=== PATIENT | male | born 1985 | race African-American/Black ===

== ENCOUNTER 2022-03-09 11:18 | Emergency (ER) | payer OTHER ==
[2022-03-09 12:19] LABS: ALT (SGPT) 27 U/L (8-55); AST (SGOT) 22 U/L (5-34); Albumin 4.5 g/dL (3.5-5.0); Alkaline Phosphatase 65 U/L (40-110); Anion Gap 14 mmol/L (10-20); BUN (Urea Nitrogen) 14 mg/dL (8.9-20.6); Bilirubin, Total 0.4 mg/dL (0.2-1.2); Calc. Creatinine Clearance 0 mL/min (70-130); Calcium 9.5 mg/dL (7.8-10.44); Carbon Dioxide 24 mmol/L (22-29); Chloride 105 mmol/L (98-107); Globulin 3.6 g/dL (2.4-3.5); Glucose 94 mg/dL (70-105); Potassium 3.8 mmol/L (3.5-5.1); Protein, Total 8.1 g/dL (6.0-8.3); Sodium 139 mmol/L (136-145)
[2022-03-09] MEDS ORDERED: hydrALAZINE 20 MG/ML VIAL ONE (12:19)
[2022-03-09 12:27] LABS: #Basophils 0.1 10x3/uL (0.0-0.2); #Eosinphils 0.2 10x3/uL (0.0-0.5); #Monocytes 0.7 10x3/uL (0.0-1.1); #Neutrophils 3.7 10x3/uL (1.5-8.4); %Basophils 0.7 % (0.0-2.0); %Eosinophils 2.5 % (0.0-6.0); %Lymphocytes 48.9 % (18.0-47.0); %Monocytes 7.6 % (0.0-10.0); %Neutrophils 40.1 % (40.0-75.0); Hemoglobin 13.4 g/dL (13.5-17.5); Mean Corpuscular Volume 65.7 fl (81.2-95.1); Mean Platelet Volume 10.6 fl (7.4-10.4); Platelet Count 341 10x3/uL (150-450); RBC Distribution Width 18.5 % (11.5-14.5); Red Blood Cell (RBC) Count 6.38 10x6/uL (4.32-5.72); White Blood Cell (WBC) Count 9.2 10x3/uL (3.5-10.5)
[2022-03-09 12:30] LABS: Bilirubin Neg (Negative); Blood, Urine Negative (Negative); Clarity Clear (Clear); Glucose, Urine (Dipstick) Normal (Negative); Ketone, Urine Negative (Negative); Leukocyte Negative (Negative); Nitrite Negative (Negative); Protein, Urine (Dipstick) Negative (Neg-Trace); Specific Gravity, Urine 1.005 (1.002-1.036); Urobilinogen Normal mg/dL (Less than 2)
[2022-03-09 14:57] LABS: Target Cells SLIGHT = 2-5 cells (100X) (0-1/hpf)
[2022-03-09 14:58] LABS: Hypochromia SLIGHT = 6-15 cells (100X) (0-5/hpf); Ovalocytes SLIGHT = 2-5 cells (100X) (0-1/hpf)
[2022-03-09 14:59] LABS: Elliptocytes SLIGHT = 2-5 cells (100X) (0-1/hpf); Platelet Morphology Comment Appears Adequate
== END 2022-03-09 13:20 | disposition home or self-care (01) ==
LOC: CSHERS 11:18
DX: I10 Essential (primary) hypertension (principal); F17.210 Nicotine dependence, cigarettes, uncomplicated
CPT/HCPCS: 71045; 80053; 81003; 84484; 85025; 93005; 96374; J0360

== ENCOUNTER 2022-06-12 19:03 | Emergency (ER) | payer OTHER ==
[~2022-06-12 19:03] MED LIST: Iopamidol 370 76% 100 ML VIAL ONE
[2022-06-12] MEDS ORDERED: Acetaminophen 500 MG TAB ONE (20:58)
[2022-06-12] MEDS ORDERED: Ketorolac Tromethamine 30 MG/ML VIAL ONE (21:20)
[2022-06-12] MEDS ORDERED: Dexamethasone 10 MG/ML VIAL ONE (21:20)
[2022-06-12 21:32] LABS: Hemoglobin 13.4 g/dL (13.5-17.5); Mean Corpuscular HGB CONC 32.5 g/dL (32.0-36.0); Mean Corpuscular Hemoglobin 21.1 pg (27.0-33.0); Mean Corpuscular Volume 64.9 fl (81.2-95.1); Mean Platelet Volume 10.1 fl (7.4-10.4); Platelet Count 286 10x3/uL (150-450); Red Blood Cell (RBC) Count 6.35 10x6/uL (4.32-5.72); White Blood Cell (WBC) Count 22.9 10x3/uL (3.5-10.5)
[2022-06-12 21:45] LABS: ALT (SGPT) 24 U/L (8-55); AST (SGOT) 27 U/L (5-34); Albumin 4.3 g/dL (3.5-5.0); Alkaline Phosphatase 71 U/L (40-110); Anion Gap 18 mmol/L (10-20); BUN (Urea Nitrogen) 9 mg/dL (8.9-20.6); Calc. Creatinine Clearance 0 mL/min (70-130); Calcium 9.7 mg/dL (7.8-10.44); Carbon Dioxide 20 mmol/L (22-29); Chloride 102 mmol/L (98-107); Estimated GFR 90; Globulin 4.2 g/dL (2.4-3.5); Glucose 99 mg/dL (70-105); Potassium 3.5 mmol/L (3.5-5.1); Protein, Total 8.5 g/dL (6.0-8.3); Sodium 136 mmol/L (136-145)
[2022-06-12 21:53] LABS: MDiff Complete? YES
[2022-06-12 21:55] LABS: Band 11 % (5-11); Lymphocytes 4 % (21-51); Monocytes 7 % (0-10); Neutrophil 78 % (42-75)
[2022-06-12 21:56] LABS: Microcytosis SLIGHT = 6-15 cells (100X) (0-5/hpf); Platelet Morphology Comment Appears Adequate
[2022-06-12] MEDS ORDERED: Bicillin LA 1.2 MILLION UNITS/2 ML SYRINGE ONE (23:24)
== END 2022-06-13 00:28 | disposition home or self-care (01) ==
LOC: CSHERS 19:03
DX: A41.9 Sepsis, unspecified organism (principal); J02.0 Streptococcal pharyngitis; I10 Essential (primary) hypertension; F17.210 Nicotine dependence, cigarettes, uncomplicated
CPT/HCPCS: 36415; 70491; 80053; 83605; 85025; 87040; 87430; 96361; 96372; 96374; 96375; J0561; J1100; J1885; Q9967

== ENCOUNTER 2024-04-14 18:08 | Emergency (ER) | payer OTHER, SELFPAY ==
[2024-04-14] MEDS ORDERED: Acetaminophen 500 MG TAB ONE (18:56)
[2024-04-14] MEDS ORDERED: Ketorolac Tromethamine 30 MG (1 mL) VIAL ONE (18:56)
[2024-04-14] MEDS ORDERED: Haloperidol Lactate 5 MG/ML VIAL ONE (18:56)
== END 2024-04-14 19:23 | disposition home or self-care (01) ==
LOC: CSHERS 18:08
DX: G44.009 Cluster headache syndrome, unspecified, not intractable (principal); I10 Essential (primary) hypertension; F17.210 Nicotine dependence, cigarettes, uncomplicated
CPT/HCPCS: 96372; 99283; J1630; J1885

== ENCOUNTER 2024-04-18 03:40 | Inpatient (IN) | payer SELFPAY ==
[2024-04-18] MEDS ORDERED: Tetracaine 0.5% PF 4 ML BOT ONE (04:13)
[2024-04-18] MEDS ORDERED: Ketorolac Tromethamine 30 MG (1 mL) VIAL ONE (04:40)
[2024-04-18 06:02] LABS: #Basophils 0.05 10x3/uL (0.0-0.2); #Eosinphils 0.18 10x3/uL (0.0-0.5); #Monocytes 0.51 10x3/uL (0.0-1.1); #Neutrophils 5.85 10x3/uL (1.5-8.4); %Basophils 0.5 % (0.0-2.0); %Eosinophils 1.9 % (0.0-6.0); %Lymphocytes 29.5 % (18.0-47.0); %Monocytes 5.4 % (0.0-10.0); %Neutrophils 62.2 % (40.0-75.0); Hematocrit 39.4 % (38.8-50.0); Hemoglobin 13.3 g/dL (13.5-17.5); Mean Corpuscular HGB CONC 33.8 g/dL (32.0-36.0); Mean Corpuscular Hemoglobin 22.2 pg (27.0-33.0); Mean Corpuscular Volume 65.7 fL (81.2-95.1); Mean Platelet Volume 10.3 fL (7.4-10.4); Platelet Count 336 10x3/uL (150-450); RBC Distribution Width 17.5 % (11.5-14.5); White Blood Cell (WBC) Count 9.4 10x3/uL (3.5-10.5)
[2024-04-18 06:11] LABS: PTT 23.9 sec (22.0-33.0); Prothrombin Time 10.5 sec (9.5-12.1)
[2024-04-18] MEDS ORDERED: Aspirin Chewable 81 MG TAB ONE (06:12)
[2024-04-18 06:17] LABS: ALT (SGPT) 16 U/L (8-55); AST (SGOT) 16 U/L (5-34); Albumin 3.6 g/dL (3.5-5.0); Alkaline Phosphatase 48 U/L (40-110); Anion Gap 13 mmol/L (10-20); BUN (Urea Nitrogen) 17 mg/dL (8.9-20.6); Bilirubin, Total 0.2 mg/dL (0.2-1.2); Calc. Creatinine Clearance 0 mL/min (70-130); Calcium 9.3 mg/dL (7.8-10.44); Carbon Dioxide 24 mmol/L (22-29); Chloride 106 mmol/L (98-107); Estimated GFR 63; Glucose 110 mg/dL (70-105); Potassium 4.3 mmol/L (3.5-5.1); Protein, Total 6.6 g/dL (6.0-8.3); Sodium 139 mmol/L (136-145)
[2024-04-18 06:33] LABS: Microcytosis SLIGHT = 6-15 cells (100X) (0-5/hpf); Ovalocytes SLIGHT = 2-5 cells (100X) (0-1/hpf); Target Cells SLIGHT = 2-5 cells (100X) (0-1/hpf)
[2024-04-18 06:34] LABS: Platelet Adequacy Comment Appears Adequate
[2024-04-18] MEDS ORDERED: Ondansetron PF 4 MG/2 ML Vial IVP PRN (06:35)
[2024-04-18] MEDS ORDERED: Calcium Carbonate 500 MG ChewTAB PO PRN (06:35)
[2024-04-18] MEDS ORDERED: Senokot S 8.6-50 MG TAB PO PRN (06:35)
[2024-04-18 07:25] LABS: PTT 24.6 sec (22.0-33.0); Prothrombin Time 10.6 sec (9.5-12.1)
[2024-04-18 07:45] LABS: D-Dimer Test Less than 0.19 mcg/mL (0.19-0.50)
[2024-04-18 07:58] VITALS: BMI 29.7
[2024-04-18] MEDS: Aspirin 81 mg Enteric Coated Tablet PO SCH (08:36)
[2024-04-18] MEDS ORDERED: Amlodipine 5 MG TAB PO SCH (09:00)
[2024-04-18] MEDS: Sodium Chloride 0.9% 500 ML IV SCH (09:06)
[2024-04-18 10:18] LABS: Amphetamine Not Detected (NotDetected); Barbiturates Screen Not Detected (NotDetected); Benzodiazepine Screen Not Detected (NotDetected); Cocaine Metabolite Screen Not Detected (NotDetected); Methadone Not Detected (NotDetected); Methamphetamine Not Detected (NotDetected); Opiate Screen Not Detected (NotDetected); Oxycodone Screen Not Detected (NotDetected); Phencyclidine (PCP) Not Detected (NotDetected); THC/Cannabinoid Screen Not Detected (NotDetected); Tricyclic Screen Not Detected (NotDetected)
[2024-04-18] MEDS ORDERED: Iopamidol 370 76% 100 ML VIAL ONE (10:44)
[2024-04-18] MEDS: Enoxaparin 40 MG (0.4 mL) SYRINGE SC SCH (20:26)
[2024-04-18] MEDS: Hydrochlorothiazide 25 MG TAB PO SCH (20:27)
[2024-04-18] MEDS: Atorvastatin Calcium 40 MG TAB PO SCH (20:27)
[2024-04-18] MEDS: Losartan 50 MG TAB PO SCH (20:27)
[2024-04-19] MEDS: Acetaminophen 325 MG TAB PO PRN (02:25)
[2024-04-19 05:52] LABS: Anion Gap 11 mmol/L (10-20); BUN (Urea Nitrogen) 12 mg/dL (8.9-20.6); Calc. Creatinine Clearance 119 mL/min (70-130); Calcium 9.4 mg/dL (7.8-10.44); Carbon Dioxide 27 mmol/L (22-29); Cardiac Risk 4.2 (Less than 4.5); Chloride 105 mmol/L (98-107); Cholesterol 159 mg/dl (< 200 Desired); Estimated GFR 76; Glucose 103 mg/dL (70-105); HDL Cholesterol 38 mg/dL (>60 Neg Risk); LDL Cholesterol, Calculated 86 mg/dL; Potassium 4.3 mmol/L (3.5-5.1); Sodium 139 mmol/L (136-145); Triglycerides 176 mg/dL (Less than 150)
[2024-04-19 07:53] VITALS: TEMP 98.5
[2024-04-19] MEDS: Folic Acid/Vit B Comp W-C PO SCH (08:36)
[2024-04-19 11:57] VITALS: BP 137/88
[2024-04-21 11:25] LABS: ANA Symphony (Qualitative) Negative (Negative); ANA Symphony (Quantitative) 0.3 Ratio (< 0.7 Negative); dsDNA IgG Antibody 1.2 IU/mL (<10 Negative)
[2024-04-21 11:58] LABS: Cardiolipin IgA Ab 3.7 APL-U/mL (<14 Negative); Cardiolipin IgG Ab 0.8 GPL-U/mL (<10 Negative); Cardiolipin IgM Ab Less than 0.9 MPL-U/mL (<10 Negative); EliA APS New Method **** NEW METHOD ****
== END 2024-04-19 12:16 | disposition home or self-care (01) | DRG 66 ==
LOC: CSHERS 03:40 → CSHTELE 06:33
PROVIDERS: ADMIT Student in an Organized Health Care Education/Training Program; ATTEND Internal Medicine
DX: I63.9 Cerebral infarction, unspecified (principal); I12.9 Hypertensive chronic kidney disease with stage 1 through stage 4 chronic kidney disease, or unspecified chronic kidney disease; N18.2 Chronic kidney disease, stage 2 (mild); D50.9 Iron deficiency anemia, unspecified; E78.5 Hyperlipidemia, unspecified; Z90.49 Acquired absence of other specified parts of digestive tract; F17.210 Nicotine dependence, cigarettes, uncomplicated; H53.459 Other localized visual field defect, unspecified eye
CPT/HCPCS: 36415; 36416; 70450; 70496; 70498; 70551; 80048; 80053; 80061; 80306; 83090; 84443; 85025; 85300; 85303; 85305; 85307; 85598; 85610; 85730; 86038; 86147; 86225; 93005; 93306; 96372; J1650; J1885; J7030; Q9967